=== PATIENT | female | born 1965 | race Caucasian/White ===

== ENCOUNTER → 2019-12-01 13:18 | Outpatient (CLI) | payer OTHER, SELFPAY ==
--- NOTE | ~2019-12-01 | MM_ITS ---
EXAMINATION: MM screening [facility] BI w kelly HISTORY: Screening mammogram TECHNIQUE: Craniocaudal and mediolateral oblique 3-D tomosynthesis images were obtained and synthetic 2-D images were generated. CAD analysis was submitted and interpreted. COMPARISON: 12/09/2018, 12/05/2017, 11/30/2016 BREAST PARENCHYMAL COMPOSITION: There are scattered areas of fibroglandular density. FINDINGS: There is no evidence of suspicious mass, calcification, or architectural distortion to sugg est malignancy in either breast. There has been no suspicious interval change. IMPRESSION: 1. No mammographic evidence of malignancy. 2. Recommend routine screening mammography in one year. BI-RADS Category 1: Negative Reviewed, dictated and finalized at location A.
--- NOTE | ~2019-12-01 | DEXA_ITS ---
Bone Density Report Name: Radha Colunga Age: 54 Sex: Female Ethnicity: White Date of : 1965 Indication: postmenopausal; screening for osteoporosis; Referring Provider: NIKKI DAVISON Study: Bone densitometry was performed. Exam Date: December 01, 2019 Accession number: [id number] Bone Density: Region BMD T-score Z-score Classification AP Spine (L1-L4) 1.067 0.2 1.2 Normal Femoral Neck (Right) 0.935 0.8 1.8 Normal Total Hip (Right) 1.051 0.9 1.5 Normal World Health Organization criteria for BMD impression classify patients as: Normal (T-score at or above -1.0), Osteopenia (T-score between -1.0 and -2.5), or Osteoporosis (T-score at or below -2.5). 10-year Fracture Risk: FRAX not reported because: All T-scores for Spine Total, Hip Total, Femoral Neck at or above -1.0 Previous Exams: Region Exam Age BMD T-score BMD Change BMD Change Date g/cm2 vs Baseline vs Previous AP Spine(L1-L4) 12/01/2019 54 1.067 0.2 -0.068* -0.068* 11/30/2016 51 1.135 0.8 Total Hip(Right) 12/01/2019 54 1.051 0.9 -0.037* -0.037* 11/30/2016 51 1.088 1.2 *Denotes significance at 95% confidence level, LSC for AP Spine = 0.022 g/cm2, LSC for Total Hip = 0.027 g/cm2 Clinical Information Provided by Patient: Has used the following medications: Vitamin D Patient maximum height was 63 No regular weight bearing exercise Does not regularly consume dairy products Drinks caffeinated beverages Onset of menses at age 13 Number of children 2 Impression: The patient has normal bone mass. The BMD for the AP Spine(L1-L4) decreased, changing by -0.068 since the last DXA exam. The BMD for the Total Hip(Right) decreased, changing by -0.037 since the last DXA exam. Discussion: BONE DENSITY IS ABOVE THE MINIMUM DESIRABLE LEVEL AT ALL SKELETAL SITES TESTED. This patient?s bone mineral density is above the minimum desirable level (T-score -1.0 or better) at all sites measured. The patient should follow a healthful lifestyle (good nutrition with adequate calcium and vitamin D, and appropriate weight-bearing exercise). Follow-Up: Consider repeating this study in 3 to 4 years to reassess this patient's status, or sooner if there is some new clinical indication. Reported by: [facility] on 12/01/2019 1:43:00 PM. Reviewed, dictated and finalized at location AAman DUMAS
== END ==
PROVIDERS: Visit Provider Obstetrics & Gynecology Gynecology
DX: Z12.31 Encounter for screening mammogram for malignant neoplasm of breast (principal); Z78.0 Asymptomatic menopausal state
CPT/HCPCS: 77063; 77067; 77080

== ENCOUNTER → 2020-12-08 10:17 | Outpatient (CLI) | payer OTHER, SELFPAY ==
--- NOTE | ~2020-12-08 | MM_ITS ---
EXAMINATION: MM screening [facility] BI w kelly HISTORY: Screening TECHNIQUE: Craniocaudal and mediolateral oblique 3-D tomosynthesis images were obtained and synthetic 2-D images were generated. CAD analysis was submitted and interpreted. COMPARISON: Comparison to multiple prior studies sequentially, with oldest reviewed study dated 05/2015. BREAST PARENCHYMAL COMPOSITION: There are scattered areas of fibroglandular density. FINDINGS: There is no evidence of suspicious mass, calcification, or architectural distortion to sugg est malignancy in either breast. There has been no suspicious interval change. IMPRESSION: 1. No mammographic evidence of malignancy. 2. Recommend routine screening mammography in one year. BI-RADS Category 1: Negative Reviewed, dictated and finalized at location A.
== END ==
PROVIDERS: Visit Provider Obstetrics & Gynecology Gynecology
DX: Z12.31 Encounter for screening mammogram for malignant neoplasm of breast (principal)
CPT/HCPCS: 77063; 77067

== ENCOUNTER 2021-08-08 00:45 | Day surgery (SDC) | payer OTHER, SELFPAY ==
[2021-07-28 12:49] VITALS: BMI 31.8
--- NOTE | 2021-08-06 12:39 | WPDANESEPPF ---
Anes - Initial Pre Proc Eval Procedure: Operation Date: 08/08/21 10:30 Proposed Procedures p Screening Colonoscopy - Jose Antonio Elizabeth MD Date/Time: 08/06/21 12:39 Surgeon: Jose Antonio Elizabeth MD Pre Op Diagnosis: family hx colon ca, neoplasm screening Patient Data Age: 56 Gender: F Height: 1.57 m Weight: 79 kg Allergies Allergy/AdvReac Type Severity Reaction Status Date / Time amoxicillin Allergy Unknown unknown Verified 08/08/21 09:29 Home Medications Medication Instructions Recorded Confirmed Type sumatriptan succinate 100 mg tablet 100 mg PO PRN PRN 11/03/20 07/28/21 History biotin 1,000 mcg PO DAILY 07/28/21 07/28/21 History cetirizine-pseudoephedrine 1 tablet PO DAILY 07/28/21 07/28/21 History [Zyrtec-D] cholecalciferol (vitamin D3) 125 mcg PO DAILY 07/28/21 07/28/21 History [Vitamin D3] Patient hx anesthesia problems: none Family hx anesthesia problems: none Results Review: All pre-operative results and documents have been reviewed as part of the pre-operative evaluation. [facility] Past Medical History Medical History (Updated 08/08/21 @ 09:39 by Jose Antonio Elizabeth MD) Migraine, unspecified, not intractable, without status migrainosus Surgical History Surgical History (Updated 08/06/21 @ 12:39 by Jason Tobias DO) History of hip replacement Family History Family History Mother Hypertension Father Family history of pancreatic cancer Other Carcinoma of colon Social History Social History (Updated 11/03/20 @ 15:04 by Lillie Ahuja CMA) Smoking status: Never smoker Second hand tobacco smoke exposure: No Alcohol intake: current Substance use: never Substance use type: does not use Living arrangements: with family Gender identity (if verbalized by the patient): Female Spiritual care concerns: No Anes - Eval Final PreProcedure Day of Procedure 08/06/21 12:39 Patient weight: obese Heart: regular rate and rhythm Lungs: clear to auscultation and normal air movement Airway: Mallampati scale class II Neurological: alert and oriented Last oral intake: >/= 8 hours ASA classification: II Emergent: no Anesthetic plan: proceed Anesthesia type and monitoring: general GIVS and standard monitoring Results Review: All pre-operative results and documents have been reviewed as part of the pre-operative evaluation. Informed Consent: The patient's anesthetic plan and its attendant risks and benefits were discussed with the patient/family/POA. Questions were solicited and answers provided to the satisfaction of the patient/family/POA.
[2021-08-08 09:30] VITALS: BP 120/72; PULSE 93; RESP 16; TEMP 36.1; O2SAT 100
--- NOTE | 2021-08-08 09:38 | WPDGICN ---
Assessment and Plan Assessment and plan (1) Family hx of colon cancer: Code(s): Z80.0 - Family history of malignant neoplasm of digestive organs Status: Acute Assessment and Plan: Patient has family history of colon cancer in grandmother and several aunts and uncles. She father had pancreatic cancer suggesting some thing similar to Cheng syndrome. Plan is for surveillance colonoscopy now on at least 5 year intervals in the future. Further recommendations will be given after endoscopy. GI Consult Note Consult date/time: 08/08/21 09:38 HPI: Radha Colunga is a 56 year old female Presents for screening colonoscopy. Patient states that her own weight appetite bowel movements are normal. She denies abdominal pain. She has had no bleeding. Previous colonoscopy 2017 was unremarkable. Family history is significant that her father passed with pancreatic cancer. Grandmother and at least 3 aunts and uncles have had colon cancer. Patient presents today for neoplasia screening. Review of Systems Review of Systems: All systems reviewed & are unremarkable except as noted in HPI and below PMFSH Past Medical History Medical History (Updated 08/08/21 @ 09:39 by Jose Antonio Elizabeth MD) Migraine, unspecified, not intractable, without status migrainosus Surgical History Surgical History (Updated 08/06/21 @ 12:39 by Jason Tobias DO) History of hip replacement Family History Family History Mother Hypertension Father Family history of pancreatic cancer Other Carcinoma of colon Social History Social History (Updated 11/03/20 @ 15:04 by Lillie Ahuja CMA) Smoking status: Never smoker Second hand tobacco smoke exposure: No Alcohol intake: current Substance use: never Substance use type: does not use Living arrangements: with family Gender identity (if verbalized by the patient): Female Spiritual care concerns: No Meds Home Medications and Allergies Home Medications Medication Instructions Recorded Confirmed Type sumatriptan succinate 100 mg tablet 100 mg PO PRN PRN 11/03/20 07/28/21 History biotin 1,000 mcg PO DAILY 07/28/21 07/28/21 History cetirizine-pseudoephedrine 1 tablet PO DAILY 07/28/21 07/28/21 History [Zyrtec-D] cholecalciferol (vitamin D3) 125 mcg PO DAILY 07/28/21 07/28/21 History [Vitamin D3] Allergies Allergy/AdvReac Type Severity Reaction Status Date / Time amoxicillin Allergy Unknown unknown Verified 08/08/21 09:29 Vital Signs Vital Signs - 24 hr 08/08/21 09:30 Temperature 97 F L Pulse Rate 93 Respiratory Rate 16 Blood Pressure 120/72 Pulse Oximetry 100 Exam Narrative: physical exam reveals patient to be alert. Vital signs stable. HEENT exam is unremarkable. Patient is anicteric. Lungs are clear to auscultation and percussion. Heart is without murmur or extra sounds. Abdominal exam bowel sounds present soft nontender with no organomegaly. Digital external rectal exam is normal.
[2021-08-08] MEDS: LACTATED RINGERS 1,000 ML 150 ML IV CONT (09:50)
[2021-08-08 10:18] VITALS: BP 123/77; PULSE 80; RESP 24; O2SAT 98
[2021-08-08 10:28] VITALS: BP 111/82; PULSE 84; RESP 26; O2SAT 100
[2021-08-08 10:38] VITALS: BP 127/75; PULSE 69; RESP 17; O2SAT 100
== END 2021-08-08 10:58 | disposition home or self-care (01) ==
PROVIDERS: PCP Family Medicine; Visit Provider Internal Medicine Gastroenterology
PROC: 0DJD8ZZ Inspection of Lower Intestinal Tract, Via Natural or Artificial Opening Endoscopic (ICD-10-PCS; CPT 45378; principal; 2021-08-08 10:30)
DX: Z12.11 Encounter for screening for malignant neoplasm of colon (principal); K63.5 Polyp of colon; K64.8 Other hemorrhoids; Z80.0 Family history of malignant neoplasm of digestive organs; E66.9 Obesity, unspecified; Z68.31 Body mass index [BMI] 31.0-31.9, adult
CPT/HCPCS: 45385; 88305; J2704; J7120

== ENCOUNTER → 2021-12-09 12:32 | Outpatient (CLI) | payer OTHER, SELFPAY ==
--- NOTE | ~2021-12-09 | MM_ITS ---
EXAMINATION: MM screening [facility] BI w kelly HISTORY: Screening TECHNIQUE: Craniocaudal and mediolateral oblique 3-D tomosynthesis images were obtained and synthetic 2-D images were generated. CAD analysis was submitted and interpreted. COMPARISON: Comparison to multiple prior studies sequentially, with oldest reviewed study dated 05/2015. BREAST PARENCHYMAL COMPOSITION: There are scattered areas of fibroglandular density. FINDINGS: There is no evidence of suspicious mass, calcification, or architectural distortion to sugg est malignancy in either breast. There has been no suspicious interval change. IMPRESSION: 1. No mammographic evidence of malignancy. 2. Recommend routine screening mammography in one year. BI-RADS Category 1: Negative Reviewed, dictated and finalized at location A.
== END ==
PROVIDERS: PCP Family Medicine; Visit Provider Obstetrics & Gynecology Gynecology
DX: Z12.31 Encounter for screening mammogram for malignant neoplasm of breast (principal)
CPT/HCPCS: 77063; 77067

== ENCOUNTER → 2023-01-23 14:03 | Outpatient (CLI) | payer OTHER, SELFPAY ==
--- NOTE | ~2023-01-23 | MM_ITS ---
EXAMINATION: MM screening [facility] BI w kelly HISTORY: Screening mammogram TECHNIQUE: Craniocaudal and mediolateral oblique 3-D tomosynthesis images were obtained and synthetic 2-D images were generated. CAD analysis was submitted and interpreted. COMPARISON: 12/09/2021, 12/08/2020, 12/01/2019. He mammogram examinations BREAST PARENCHYMAL COMPOSITION: There are scattered areas of fibroglandular density. FINDINGS: There is no evidence of suspicious mass, calcification, or architectural distortion to sugg est malignancy in either breast. There has been no suspicious interval change. IMPRESSION: 1. No mammographic evidence of malignancy. 2. Recommend routine screening mammography in one year. BI-RADS Category 1: Negative Reviewed, dictated and finalized at location A.
== END ==
PROVIDERS: PCP Obstetrics & Gynecology Gynecology; Visit Provider Obstetrics & Gynecology Gynecology
DX: Z12.31 Encounter for screening mammogram for malignant neoplasm of breast (principal)
CPT/HCPCS: 77063; 77067

== ENCOUNTER 2023-08-16 08:01 | Emergency (ER) | payer OTHER, SELFPAY ==
--- NOTE | 2023-08-16 08:08 | ED.URI ---
HPI - URI/Sore Throat General Chief Complaint: Upper Respiratory Infection Stated Complaint: SORE THROAT Time Seen by Provider: 08/16/23 08:15 Source: patient, RN notes reviewed and old records reviewed Mode of arrival: ambulatory Limitations: no limitations History of Present Illness HPI Narrative: 58-year-old female who presents to [facility] with complaints of sore throat, lonny nasal drainage and dry cough for the past 2 days. Patient reports that she has taken Mucinex for her symptoms. Taj reports fever last evening max of 100F. Patient sai any known ill contacts. Patient reports painful swallowing. MD elicited complaint: sore throat Pertinent past history: other (tonsillectomy age 6) Onset (ago): day(s) (2) Severity: moderate Able to tolerate fluids by mouth: Yes Exacerbating factors: swallowing Associated symptoms: fever, rhinorrhea, nasal congestion, sore throat and cough Treatments prior to arrival: other (Mucinex) Related Data Home Medications Medication Instructions Recorded Confirmed sumatriptan succinate 100 mg tablet 100 mg PO PRN PRN Migraine Headache 11/03/20 08/16/23 biotin 1,000 mcg chewable tablet 1,000 mcg PO DAILY 07/28/21 08/16/23 cetirizine 5 mg-pseudoephedrine ER 1 tablet PO DAILY 07/28/21 08/16/23 120 mg tablet,extended release,12hr (Zyrtec-D) cholecalciferol (vitamin D3) 125 125 mcg PO DAILY 07/28/21 08/16/23 mcg (5,000 unit) tablet (Vitamin D3) Allergies Allergy/AdvReac Type Severity Reaction Status Date / Time amoxicillin Allergy Unknown unknown Verified 10/06/21 08:17 Review of Systems Review of Systems: CONSTITUTIONAL: Reports malaise, chills, sweats, or fever. EYES: Denies visual changes, redness, or discharge. ENT: Reports rhinorrhea, congestion, sinus pain,no otalgia and positive for sore throat. CARDIOVASCULAR: Denies chest pain, palpitations, or edema. RESPIRATORY: Reports cough.? Denies dyspnea. GASTROINTESTINAL: Denies abdominal pain, nausea, vomiting, diarrhea SKIN: Denies rash or itching. MUSCULOSKELETAL: Denies myalgia. NEUROLOGIC: Denies headache. All systems reviewed & are unremarkable except as noted in HPI and below [facility] Past Medical History Medical History (Updated 08/16/23 @ 08:33 by Kandi Smith NP) Migraine, unspecified, not intractable, without status migrainosus Surgical History Surgical History (Updated 08/16/23 @ 08:24 by Kandi Smith NP) H/O partial thyroidectomy History of hip replacement Hx of tonsillectomy Family History Family History Mother Hypertension Father Family history of pancreatic cancer Other Carcinoma of colon Social History Social History Second hand tobacco smoke exposure: No Alcohol intake: current Substance use: never Substance use type: does not use Living arrangements: with family Occupation/Education: occupation Gender identity (if verbalized by the patient): Female Spiritual care concerns: No Comments At time of signature, agree with nursing past medical, surgical, social and family history. There is no relevant family history pertinent to the presenting complaint Exam Narrative: GENERAL: Well-appearing, well-nourished, and in no acute distress. HEAD: Normocephalic EYES: PERRLA, conjunctivae clear ENT: Nares clear, turbinates edematous and erythematous, clear discharge. Mucous membranes moist. TM pearly suarez with dull light reflex bilaterally; no tragal tenderness. Oropharynx erythematous without lesions. Tonsils right side noted though had tonsillectomy as child which is red and enlarged without exudate, no drooling, no hoarseness, no trismus, uvula midline. NECK: Supple. No lymphadenopathy CHEST: Clear to auscultation, breath sounds equal. No wheezing, rhonchi, rales, or stridor. No respiratory distress, speaks in full sentences.dry
[2023-08-16 08:16] VITALS: BP 119/86; PULSE 111; RESP 15; TEMP 37.2; O2SAT 100
== END 2023-08-16 08:40 | disposition home or self-care (01) ==
PROVIDERS: Emergency Provider Registered Nurse; PCP Family Medicine
DX: J02.9 Acute pharyngitis, unspecified (principal); Z90.89 Acquired absence of other organs
CPT/HCPCS: 87081; 87880; 99213; G0463

== ENCOUNTER 2024-03-11 13:45 | Outpatient (CLI) | payer OTHER, SELFPAY ==
--- NOTE | ~2024-03-11 | MM_ITS ---
EXAMINATION: MM screening [facility] BI w kelly HISTORY: Screening TECHNIQUE: Craniocaudal and mediolateral oblique 3-D tomosynthesis images were obtained and synthetic 2-D images were generated. CAD analysis was submitted and interpreted. COMPARISON: Comparison to multiple prior studies sequentially, with oldest reviewed study dated 12/05. BREAST PARENCHYMAL COMPOSITION: Not dense: There are scattered areas of fibroglandular density. FINDINGS: There is no evidence of suspicious mass, calcification, or architectural distortion to sugg est malignancy in either breast. There has been no suspicious interval change. IMPRESSION: 1. No mammographic evidence of malignancy. 2. Recommend routine screening mammography in one year. BI-RADS Category 1: Negative Reviewed, dictated and finalized at location B.
== END 2024-03-11 13:46 | disposition home or self-care (01) ==
LOC: MICIMG 13:46
PROVIDERS: PCP Family Medicine; Visit Provider Obstetrics & Gynecology Gynecology
DX: Z12.31 Encounter for screening mammogram for malignant neoplasm of breast (principal)
CPT/HCPCS: 77063; 77067

== ENCOUNTER 2025-04-24 13:27 | Outpatient (CLI) | payer OTHER, SELFPAY ==
--- NOTE | ~2025-04-24 | MM_ITS ---
EXAMINATION: MM screening [facility] BI w kelly HISTORY: Screening. TECHNIQUE: Craniocaudal and mediolateral oblique 3-D tomosynthesis images were obtained and synthetic 2-D images were generated. CAD analysis was submitted and interpreted. COMPARISON: 2023, 2022, and 2021. BREAST PARENCHYMAL COMPOSITION: Not Dense: There are scattered areas of fibroglandular FINDINGS: No suspicious masses are seen. There are no suspicious calcifications. No unexplained architectural distortion is seen. There are no skin or nipple abnormalities identified. There is no adenopathy seen on the images submitted. IMPRESSION: No mammographic or sonographic evidence to suggest malignancy is seen. The patient may return to screening mammography as per ACR guidelines. BI-RADS 1 - Negative. Reviewed, dictated and finalized at location B. [employer] IMPRESSION: No mammographic or sonographic evidence to suggest malignancy is seen. The alma ent may return to screening mammography as per ACR guidelines. BI-RADS 1 - Negative.
--- NOTE | ~2025-04-24 | DEXA_ITS ---
Bone Density Report Name: TIERRA DUKES Age: 59 Sex: Female Ethnicity: White Date of : 1965 Indication: postmenopausal; screening for osteoporosis; Referring Provider: NIKKI DAVISON Study: Bone densitometry was performed. Exam Date: April 24, 2025 Accession number: [id number] Bone Density: Region BMD T-score Z-score Classification AP Spine(L1-L4) 1.044 0.0 1.4 Normal Femoral Neck (Right) 0.867 0.2 1.4 Normal Total Hip (Right) 1.005 0.5 1.5 Normal World Health Organization criteria for BMD impression classify patients as: Normal (T-score at or above -1.0), Osteopenia (T-score between -1.0 and -2.5), or Osteoporosis (T-score at or below -2.5). 10-year Fracture Risk: FRAX not reported because: All T-scores for Spine Total, Hip Total, Femoral Neck at or above -1.0 Previous Exams: -- Region Exam Age BMD T-score BMD Change BMD Change Date g/cm2 vs Baseline vs Previous -- AP Spine (L1-L4) 04/24/2025 59 1.044 0.0 -8.0%* -2.1%* 12/01/2019 54 1.067 0.2 -6.0%* -6.0%* 11/30/2016 51 1.135 0.8 Total Hip(Right) 04/24/2025 59 1.005 0.5 -7.6%* -4.4%* 12/01/2019 54 1.051 0.9 -3.4%* -3.4%* 11/30/2016 51 1.088 1.2 -- *Denotes significance at 95% confidence level, LSC for AP Spine = 0.022 g/cm2, LSC for Total Hip = 0.027 g/cm2 Clinical Information Provided by Patient: Has used the following medications: Vitamin D Patient maximum height was 63 Menopause Age: 52 No regular weight bearing exercise Does not regularly consume dairy products Onset of menses at age 12 Number of children 2 Impression: The patient has normal bone mass. The BMD for the AP Spine (L1-L4) decreased, changing by -2.1% since the last DXA exam. The BMD for the Total Hip(Right) decreased, changing by -4.4% since the last DXA exam. Discussion: BONE DENSITY IS ABOVE THE MINIMUM DESIRABLE LEVEL AT ALL SKELETAL SITES TESTED. This patient?s bone mineral density is above the minimum desirable level (T-score -1.0 or better) at all sites measured. The patient should follow a healthful lifestyle (good nutrition with adequate calcium and vitamin D, and appropriate weight-bearing exercise). Follow-Up: Consider repeating this study in 3 to 4 years to reassess this patient's status, or sooner if there is some new clinical indication. Reported by: SHADY on 04/24/2025 1:46:00 PM. Reviewed, dictated and finalized at location A.
== END 2025-04-24 13:28 | disposition home or self-care (01) ==
LOC: MICIMG 13:29
PROVIDERS: PCP Family Medicine; Visit Provider Obstetrics & Gynecology Gynecology
DX: Z12.31 Encounter for screening mammogram for malignant neoplasm of breast (principal); Z78.0 Asymptomatic menopausal state
CPT/HCPCS: 77063; 77067; 77080